=== PATIENT | male | born 1945 | race Caucasian/White ===

== ENCOUNTER 2017-10-17 08:43 | Inpatient (IN) | payer MEDICARE ==
[~2017-10-17] VITALS: Ht 170.2 cm; Wt 125.6 kg
[~2017-10-17 08:43] MED LIST: ASPI-496 PO; ATOR10TA PO; BACITRACIN 50,000 UNIT ONE; BUPIVACAINE/PF 0.5% ONE; CHOL100011 PO; DULO30CA2 PO; EPINEPHRINE 1 MG/ML, 1ML ONE; FERROUS SULFATE PO; GLUC1TAB27 PO; HYDR-3241 PO; IBUP200T64 PO; ISOS30TA21 PO; KETO5DRO70 EACHEYE; METO2.5T PO; MULT-516 PO; OMEG1CAP6 PO; PANT20TA3 PO; SAW450CA7 PO; TERA2CAP3 PO; THROMBIN 5,000 UNIT VIAL TP ONE; TRAM50TA2 PO; UBID1CAP51 PO
[2017-10-17] MEDS ORDERED: LACTATED RINGERS 1,000 ML IV SCH (09:28)
[2017-10-17 09:31] VITALS: BP 158/81
[2017-10-17] MEDS ORDERED: MIDAZOLAM 1 MG/ML, 2ML ONE (10:17)
[2017-10-17] MEDS ORDERED: FENTANYL PF 100 MCG/2ML ONE ×4 (10:17→12:58)
[2017-10-17] MEDS ORDERED: PROPOFOL 10 MG/ML, 20ML ONE (10:18)
[2017-10-17] MEDS ORDERED: ROCURONIUM 10 MG/ML,10ML ONE (10:18)
[2017-10-17] MEDS ORDERED: GLYCOPYRROLATE 0.4 MG/2 ML, 2ML ONE (10:19)
[2017-10-17] MEDS ORDERED: NEOSTIGMINE 1 MG/ML, 10ML ONE (10:19)
[2017-10-17] MEDS ORDERED: CEFAZOLIN 1,000 MG ONE ×3 (10:20→12:07)
[2017-10-17] MEDS ORDERED: SODIUM CHLORIDE 0.9% PF 10ML ONE ×2 (10:20→12:14)
[2017-10-17] MEDS ORDERED: BUPIVACAINE 0.25% ONE (11:29)
[2017-10-17] MEDS ORDERED: PHENYLEPHRINE 10 MG/ML ONE (11:54)
[2017-10-17] MEDS ORDERED: FENTANYL PF 100 MCG/2ML IV PRN (12:00)
[2017-10-17] MEDS ORDERED: HYDROmorphone 1 MG/ML, 1ML IV PRN (12:00)
[2017-10-17] MEDS ORDERED: LABETALOL 5MG/ML, 20ML IV PRN ×2 (12:00→16:00)
[2017-10-17] MEDS ORDERED: DIAZEPAM 5 MG/ML, 2ML IVPush PRN (12:00)
[2017-10-17] MEDS ORDERED: hydrALAzine 20 MG/ML, 1ML IV PRN (12:00)
[2017-10-17] MEDS ORDERED: PROMETHAZINE 25 MG/ML, 1ML IV PRN (12:00)
[2017-10-17] MEDS ORDERED: MEPERIDINE/PF 25MG/0.5ML IVPush PRN (12:00)
[2017-10-17] MEDS ORDERED: ONDANSETRON 2MG/ML, 2ML IVPush PRN (12:00)
[2017-10-17] MEDS ORDERED: OXYcodone 5 MG/5 ML ORAL.SOL UDC PO PRN (12:00)
[2017-10-17] MEDS ORDERED: ACETAMINOPHEN 325 MG TABLET PO PRN (12:00)
[2017-10-17] MEDS ORDERED: EPHEDRINE 50 MG/ML, 1ML ONE (12:14)
[2017-10-17] MEDS ORDERED: BUPIVACAINE LIPOSOME/PF INFIL ONE (12:37)
[2017-10-17] MEDS ORDERED: FENTANYL PF 100 MCG/2ML EPIDPUSH ONE (13:01)
[2017-10-17] MEDS ORDERED: BUPIVACAINE/PF 0.25% EPIDPUSH ONE (13:02)
[2017-10-17 15:46] VITALS: BP 94/36
[2017-10-17] MEDS ORDERED: OXYcodone/APAP 5/325MG TABLET PO PRN (16:00)
[2017-10-17] MEDS ORDERED: PROMETHAZINE 25 MG/ML, 1ML IM PRN (16:00)
[2017-10-17] MEDS ORDERED: BISACODYL 10 MG SUPP PR PRN (16:00)
[2017-10-17] MEDS ORDERED: ONDANSETRON 2MG/ML, 2ML IV PRN (16:00)
[2017-10-17] MEDS ORDERED: morphine SULFATE 10 MG/ML, 1ML IV PRN (16:00)
[2017-10-17] MEDS ORDERED: MAGNESIUM HYDROXIDE 8%, 30ML UDC PO PRN (16:00)
[2017-10-17] MEDS ORDERED: DIPHENHYDRAMINE 50 MG CAPSULE PO PRN (16:00)
[2017-10-17] MEDS: TERAZOSIN 2MG CAPSULE PO SCH ×2 (17:35→20:57)
[2017-10-17] MEDS: D5%-0.9% NACL+KCL 20MEQ 1,000 ML IV SCH (17:35)
[2017-10-17 19:19] VITALS: BP 168/73
[2017-10-17] MEDS: HYDROcodone/APAP 10/325 MG TABLET PO PRN ×2 (20:34→21:24)
[2017-10-17] MEDS: DULOXETINE 30 MG CAPSULE.DR PO SCH (20:56)
[2017-10-17] MEDS: METOLAZONE 2.5 MG TABLET PO SCH (20:56)
[2017-10-17] MEDS: ATORVASTATIN 10 MG TABLET PO SCH (20:56)
[2017-10-17] MEDS ORDERED: ZOLPIDEM 5MG TABLET PO PRN (21:00)
[2017-10-17] MEDS: CYCLOBENZAPRINE 10 MG TABLET PO PRN (22:37)
[2017-10-17] MEDS: CEFAZOLIN PMX 1GM/50ML 50 ML IVPB SCH (23:21)
[2017-10-18 00:18] VITALS: BP 157/82
[2017-10-18] MEDS: HYDROcodone/APAP 10/325 MG TABLET PO PRN ×4 (03:06→20:55)
[2017-10-18 03:29] VITALS: BP 124/50
[2017-10-18] MEDS: D5%-0.9% NACL+KCL 20MEQ 1,000 ML IV SCH ×3 (04:55→22:00)
[2017-10-18] MEDS: CEFAZOLIN PMX 1GM/50ML 50 ML IVPB SCH ×3 (06:28→23:17)
[2017-10-18 06:51] VITALS: BP 121/71
[2017-10-18] MEDS: CYCLOBENZAPRINE 10 MG TABLET PO PRN ×2 (08:05→23:18)
[2017-10-18] MEDS: TERAZOSIN 2MG CAPSULE PO SCH ×3 (08:06→20:53)
[2017-10-18] MEDS: SENNA/DOCUSATE TABLET PO SCH (08:06)
[2017-10-18] MEDS: METOLAZONE 2.5 MG TABLET PO SCH ×2 (08:06→20:54)
[2017-10-18] MEDS: FERROUS SULFATE 325 MG TABLET PO SCH ×3 (08:06→16:02)
[2017-10-18] MEDS: ISOSORBIDE DINITRATE 30 MG TABLET PO SCH (08:06)
[2017-10-18] MEDS: PANTOPROZOLE 40MG TABLET PO SCH (08:07)
[2017-10-18 12:25] VITALS: BP 115/72
[2017-10-18 15:57] VITALS: BP 165/66
[2017-10-18 18:36] VITALS: BP 125/74
[2017-10-18] MEDS: DULOXETINE 30 MG CAPSULE.DR PO SCH (20:53)
[2017-10-18] MEDS: ATORVASTATIN 10 MG TABLET PO SCH (20:54)
[2017-10-19 01:16] VITALS: BP 150/72
[2017-10-19 06:43] VITALS: BP 150/70
[2017-10-19] MEDS: D5%-0.9% NACL+KCL 20MEQ 1,000 ML IV SCH ×2 (08:00→18:00)
[2017-10-19] MEDS: CYCLOBENZAPRINE 10 MG TABLET PO PRN (08:21)
[2017-10-19] MEDS: PANTOPROZOLE 40MG TABLET PO SCH (08:22)
[2017-10-19] MEDS: TERAZOSIN 2MG CAPSULE PO SCH ×3 (08:22→23:12)
[2017-10-19] MEDS: FERROUS SULFATE 325 MG TABLET PO SCH ×3 (08:22→18:01)
[2017-10-19] MEDS: CEFAZOLIN PMX 1GM/50ML 50 ML IVPB SCH ×2 (08:22→18:01)
[2017-10-19] MEDS: SENNA/DOCUSATE TABLET PO SCH (08:23)
[2017-10-19] MEDS: ISOSORBIDE DINITRATE 30 MG TABLET PO SCH (08:23)
[2017-10-19] MEDS: METOLAZONE 2.5 MG TABLET PO SCH ×2 (08:23→20:58)
[2017-10-19 08:27] VITALS: BP 154/61
[2017-10-19] MEDS ORDERED: CYCLOBENZAPRINE 10 MG TABLET PO PRN (12:30)
[2017-10-19 13:20] VITALS: BP 135/68
[2017-10-19 17:13] LABS: IS PT STATUS REG ER OR PRE ER? NO
[2017-10-19 19:33] LABS: HEMATOCRIT 33.8 % (39.2-51.8); HEMOGLOBIN 11.6 g/dL (13.7-18.0)
[2017-10-19 20:03] LABS: ASPARTATE AMINO TRANSFERASE 42 U/L (15-37); BLOOD UREA NITROGEN 22 mg/dL (7-18)
[2017-10-19 20:30] VITALS: BP 150/79
[2017-10-19] MEDS ORDERED: METOPROLOL TARTRATE 50 MG TABLET ONE (20:53)
[2017-10-19] MEDS ORDERED: ASPIRIN 325 MG TABLET ONE (20:53)
[2017-10-19] MEDS: METOPROLOL TARTRATE 50 MG TABLET PO SCH (20:57)
[2017-10-19] MEDS: ASPIRIN 325 MG TABLET PO SCH (20:57)
[2017-10-19] MEDS: ATORVASTATIN 10 MG TABLET PO SCH (20:58)
[2017-10-19] MEDS: DULOXETINE 30 MG CAPSULE.DR PO SCH (20:59)
[2017-10-19 21:05] LABS: IS PT STATUS REG ER OR PRE ER? NO
[2017-10-19] MEDS ORDERED: HEPARIN 5,000 UNITS/ML, 1ML IV PRN (21:30)
[2017-10-19] MEDS ORDERED: HEPARIN 5,000 UNITS/ML, 1ML IV ONE (21:30)
[2017-10-19] MEDS ORDERED: HEPARIN 25,000 UNITS/500ML PMX 500 ML IV PRN (21:30)
[2017-10-19 22:59] LABS: IS PT STATUS REG ER OR PRE ER? NO
[2017-10-20] MEDS: CEFAZOLIN PMX 1GM/50ML 50 ML IVPB SCH ×3 (02:31→18:05)
[2017-10-20 02:59] VITALS: BP 108/63
[2017-10-20] MEDS: D5%-0.9% NACL+KCL 20MEQ 1,000 ML IV SCH ×3 (03:39→21:46)
[2017-10-20] MEDS: METOPROLOL TARTRATE 50 MG TABLET PO SCH ×2 (05:15→17:02)
[2017-10-20 05:17] LABS: IS PT STATUS REG ER OR PRE ER? NO
[2017-10-20 06:43] VITALS: BP 108/67
[2017-10-20] MEDS: ASPIRIN 325 MG TABLET PO SCH (08:22)
[2017-10-20] MEDS: SENNA/DOCUSATE TABLET PO SCH (09:00)
[2017-10-20] MEDS ORDERED: ASPIRIN 325 MG TABLET PO SCH (09:00)
[2017-10-20] MEDS: ISOSORBIDE DINITRATE 30 MG TABLET PO SCH (09:47)
[2017-10-20] MEDS: TERAZOSIN 2MG CAPSULE PO SCH ×3 (09:48→20:39)
[2017-10-20] MEDS: METOLAZONE 2.5 MG TABLET PO SCH ×2 (09:58→20:39)
[2017-10-20] MEDS: FERROUS SULFATE 325 MG TABLET PO SCH ×3 (09:58→17:02)
[2017-10-20] MEDS: PANTOPROZOLE 40MG TABLET PO SCH (09:58)
[2017-10-20] MEDS: HEPARIN 5,000 UNITS/ML, 1ML SQ SCH ×2 (13:40→20:39)
[2017-10-20 14:30] VITALS: BP 101/66
[2017-10-20 19:26] VITALS: BP 124/71
[2017-10-20] MEDS: DULOXETINE 30 MG CAPSULE.DR PO SCH (20:38)
[2017-10-20] MEDS: ATORVASTATIN 10 MG TABLET PO SCH (20:39)
[2017-10-21 01:41] VITALS: BP 118/73
[2017-10-21] MEDS: CEFAZOLIN PMX 1GM/50ML 50 ML IVPB SCH ×2 (02:00→10:00)
[2017-10-21] MEDS: METOPROLOL TARTRATE 50 MG TABLET PO SCH (05:30)
[2017-10-21] MEDS: HEPARIN 5,000 UNITS/ML, 1ML SQ SCH ×2 (05:30→13:30)
[2017-10-21 06:03] LABS: HEMATOCRIT 31.1 % (39.2-51.8); HEMOGLOBIN 10.6 g/dL (13.7-18.0); WHITE BLOOD COUNT 7.1 x10^3/uL (3.4-10)
[2017-10-21 06:07] LABS: BLOOD UREA NITROGEN 30 mg/dL (7-18)
[2017-10-21] MEDS: ASPIRIN 325 MG TABLET PO SCH (07:30)
[2017-10-21] MEDS: SENNA/DOCUSATE TABLET PO SCH (07:45)
[2017-10-21] MEDS: PANTOPROZOLE 40MG TABLET PO SCH (07:45)
[2017-10-21] MEDS: TERAZOSIN 2MG CAPSULE PO SCH ×2 (07:45→13:37)
[2017-10-21] MEDS: METOLAZONE 2.5 MG TABLET PO SCH (07:45)
[2017-10-21] MEDS: FERROUS SULFATE 325 MG TABLET PO SCH ×2 (07:45→13:37)
[2017-10-21] MEDS: ISOSORBIDE DINITRATE 30 MG TABLET PO SCH (07:45)
[2017-10-21] MEDS: D5%-0.9% NACL+KCL 20MEQ 1,000 ML IV SCH (07:46)
[2017-10-21 08:10] VITALS: BP 125/76
[2017-10-21 13:31] VITALS: BP 106/60
[2017-10-21] MEDS ORDERED: HYDR-3307 PO (15:52)
[2017-10-21] MEDS ORDERED: DOXY100C2 PO (15:53)
[2017-10-21] MEDS ORDERED: CYCL-259 PO (15:53)
== END 2017-10-21 16:19 | disposition home or self-care (01) | DRG 516 ==
LOC: ORIP 08:43 → 4NOR 15:38 → 5SO 10-19 20:15
PROVIDERS: ADMIT Neurological Surgery; ATTEND Neurological Surgery
PROC: 01NB0ZZ Release Lumbar Nerve, Open Approach (ICD-10-PCS; principal; 2017-10-17 13:30)
DX: M48.062 Spinal stenosis, lumbar region with neurogenic claudication (principal); Z68.41 Body mass index [BMI] 40.0-44.9, adult; E66.2 Morbid (severe) obesity with alveolar hypoventilation; I13.10 Hypertensive heart and chronic kidney disease without heart failure, with stage 1 through stage 4 chronic kidney disease, or unspecified chronic kidney disease; F33.9 Major depressive disorder, recurrent, unspecified; J98.11 Atelectasis; E78.5 Hyperlipidemia, unspecified; H40.9 Unspecified glaucoma; I25.10 Atherosclerotic heart disease of native coronary artery without angina pectoris; I08.0 Rheumatic disorders of both mitral and aortic valves; I87.2 Venous insufficiency (chronic) (peripheral); I99.8 Other disorder of circulatory system; K21.9 Gastro-esophageal reflux disease without esophagitis; M51.16 Intervertebral disc disorders with radiculopathy, lumbar region; N18.9 Chronic kidney disease, unspecified; Z85.46 Personal history of malignant neoplasm of prostate; Z87.891 Personal history of nicotine dependence; Z95.5 Presence of coronary angioplasty implant and graft
CPT/HCPCS: 36415; 71010; 72100; 78582; 80048; 80053; 82550; 82553; 83735; 83874; 83880; 84484; 85025; 85379; 85520; 93005; 93306; C9290; J0171; J0690; J1644; J2250; J2405; J2704; J2710; J3010; J3490; A9540; A9558; C9898; J2370; J3480; J7120